=== PATIENT | female | born 1980 | race Caucasian/White ===

== ENCOUNTER 2023-07-29 12:16 | Day surgery (SDC) | payer BC, OTHER ==
[~2023-07-29] VITALS: Ht 154.9 cm; Wt 50.9 kg
[~2023-07-29 12:16] MED LIST: DELZICOL400 M1 PO; IBLOOD GLUCOSE TEST STRIP 1 EA TEST VI PRN; LACTATED RINGER'S 1,000 ML IV SCH; LIDOCAINE HCL 1% 5 ML SDV INJ ONE; LIDOCAINE HCL 4% 50 ML BTL TOP SCH; METRONIDAZOLE250 MG PO; ONDANSETRON HCL4 MG PO; PANTOPRAZOLE SO40 MG PO; PREDNISONE20 MG PO
[2023-07-29 13:39] VITALS: BP 140/96
[2023-07-29] MEDS ORDERED: MIDAZOLAM HCL 5 MG/5 ML VIAL ONE (15:08)
[2023-07-29] MEDS ORDERED: fentaNYL citrate 100 MCG/2 ML VIAL ONE (15:09)
--- NOTE | 2023-07-29 15:45 | NUR ---
07/29/23 1545 Molly Langley 1539 PT ARRIVES TO THE PACU WITH RESPIRATORY RATE EVEN AND UNLABORED. PT WAS ABLE TO LIFT HEAD OFF OF BED AND DENIES PAIN. PT LAYING IN BED WITH EYES CLOSED.
[2023-07-29 16:12] VITALS: BP 127/87
--- NOTE | 2023-07-30 11:19 | OR ---
[facility] [address] [place], [place] [address] Signed DATE OF OPERATION: 07/29/2023 SURGEON: Adarsh Trejo MD PREOPERATIVE DIAGNOSES: 1. Persistent upper abdominal pain. 2. History of significant weight loss 28 pounds. 3. bILIARY workup equivocal (ultrasound negative, CCK-HIDA test 89% ejection fraction with reproduction of symptoms). POSTOPERATIVE DIAGNOSES: Mild diffuse gastritis and small hiatal hernia with distal esophagitis. PROCEDURE: Esophagogastroduodenoscopy with biopsy. ANESTHESIA: Intravenous sedation; fentanyl 100 mcg, Versed 4 mg. INDICATIONS: This 42-year-old white woman is a patient of Krysta Blankenship of [place], [place]. The patient has had diffuse abdominal pain, diarrhea and weight loss. I was quite certain she would have inflammatory bowel disease but colonoscopy did not confirm that though the colon did have some degree of inflammation endoscopically. She underwent a gallbladder ultrasound, which showed no stones and subsequently a CCK-HIDA test, which showed an ejection fraction normal at 89% with reproduction of her symptoms. Given her current symptoms of upper abdominal pain and so forth, upper endoscopy is recommended to assess for peptic disease, which may account for her symptoms. The risk of bleeding, infection, and perforation were reviewed with her, she understands and wished to proceed. Complicating things at this point is a plan for her to likely move to [place] with her boyfriend in a job capacity on an [place]. I have recommended that if upper endoscopy was entirely normal, proceed to cholecystectomy without delay. If abnormal, treat and assess response. She understands all this and wished to proceed. FINDINGS: There is mild diffuse gastritis. There is a small hiatal hernia and minimal distal esophagitis. There was no sign of neoplasm or actual ulcer. CLOtest was negative. Electronically Signed By: ADARSH TREJO MD 07/30/23 1119 PATIENT NAME: LUCHO GARCIA OPERATIVE REPORT DATE OF : 78 REPORT #: [id number] PHYSICIAN: ADARSH TREJO MD PCP: KRYSTA BLANKENSHIP REPORT IS CONFIDENTIAL AND NOT TO BE RELEASED WITHOUT AUTHORIZATION [facility] [address] [place], [place] [address] Signed DESCRIPTION OF PROCEDURE: The patient was brought to the endoscopy suite and placed in the lateral decubitus position, given intravenous sedation to the point of slurred speech and nystagmus. Full cardiopulmonary monitoring was maintained. Preoperative lidocaine hypopharyngeal anesthesia was given. A bite block was placed. After satisfactory sedation, Olympus video upper endoscope was passed in the hypopharynx. The vocal cords appeared normal. Scope was advanced to the esophagus without problem. Throughout its length it was normal except in the distal portion there was mild inflammatory change with no Self's epithelium, stricture, neoplasm or ulceration. The scope was advanced to the stomach which was insufflated with air. There were numerous flecks of dark brown material but not actual blood. Rugal folds were normal. The mucosa of the stomach was edematous including the antrum. There did appear to be antral gastritis but no ulcer. The pylorus was normal. Scope was passed in the duodenum, which was normal. Biopsies were obtained to assess for celiac disease. Scope was withdrawn and biopsies were taken of the antrum for both JEANINE and pathologic testing. A proximal gastric biopsy was also taken. The more proximal stomach appeared the more inflamed. CLOtest biopsies were -15 minutes post procedure. Scope was straightened and withdrawn to the distal esophagus and although the mucosa had mild chronic inflammatory changes. No Self's epithelium, stricture or neoplasm. A biopsy was obtained. The scope was then withdrawn and removed. The patient was taken to the recovery room in good condition. CONCLUDING DIAGNOSES: Diffuse gastritis, small hiatal hernia and mild distal esophagitis. PLAN: Empiric treatment with Prilosec 20 mg daily and Carafate 1 g p.o. q.i.d. on empty stomach would be initiated at this point. If she does not have improvement of her symptoms from this approach and biopsies are discordant with the endoscopic findings, would consider progressing to cholecystectomy on the basis of a symptomatic CCK-HIDA test despite a normal ejection fraction. Adarsh Trejo MD /MODL /[id number] Electronically Signed By: ADARSH TREJO MD 07/30/23 1119 PATIENT NAME: LUCHO GARCIA OPERATIVE REPORT DATE OF : 78 REPORT #: [id number] PHYSICIAN: ADARSH TREJO MD PCP: KRYSTA BLANKENSHIP REPORT IS CONFIDENTIAL AND NOT TO BE RELEASED WITHOUT AUTHORIZATION [address] [address] Signed cc: MARIMAR Estes Copies: ~ Electronically Signed By: ADARSH TREJO MD 07/30/23 1119 PATIENT NAME: LUCHO GARCIA OPERATIVE REPORT DATE OF : 78 REPORT #: [id number] PHYSICIAN: ADARSH TREJO MD PCP: KRYSTA BLANKENSHIP REPORT IS CONFIDENTIAL AND NOT TO BE RELEASED WITHOUT AUTHORIZATION
--- NOTE | 2023-08-05 17:10 | PATH ---
[facility] [address] [facility] [place], [place] [address] Signed SPECIMEN(S): A DUODENAL BIOPSY SPECIMEN(S): B ANTRUM STOMACH BIOPSY SPECIMEN(S): C STOMACH BIOPSY SPECIMEN(S): D ESOPHAGEAL BIOPSY SPECIMEN SOURCE: A. DUODENAL BIOPSY B. ANTRUM STOMACH BIOPSY C. STOMACH BIOPSY D. ESOPHAGEAL BIOPSY CLINICAL HISTORY: Pre-op: Upper abdominal pain; vomiting; weight loss. Post-op: Gastritis; hiatal hernia; mild esophagitis. FINAL PATHOLOGIC DIAGNOSIS: A. Duodenal biopsy: - Benign duodenal mucosa, negative for specific diagnostic abnormality. B. Antrum stomach biopsy: - Benign gastric-type mucosa with focal slight chronic inflammation. - Negative for evidence of Helicobacter organisms on routine HE stained sections. C. Stomach biopsy: - Benign gastric-type mucosa with focal slight chronic inflammation. - Negative for evidence of Helicobacter organisms on routine HE stained sections. D. Esophageal biopsy: - Benign esophageal mucosa with scattered epithelial eosinophils (up to 10 per high power field). - Negative for glandular mucosa. - See Comment. COMMENT: The increased epithelial esophageal eosinophils is insufficient for a definitive diagnosis of eosinophilic esophagitis. Clinical correlation requested. RolandoVR:kade MICROSCOPIC EXAMINATION: Histologic sections of all submitted blocks are examined by light microscopy. These findings, together with the gross examination, support the pathologic PATIENT NAME: LUCHO GARCIA PATHOLOGY DATE OF : 78 REPORT #: [id number] PHYSICIAN: [facility] PCP: KRYSTA BLANKENSHIP REPORT IS CONFIDENTIAL AND NOT TO BE RELEASED WITHOUT AUTHORIZATION [facility] [address] [facility] [place] [address] Signed diagnosis. GROSS DESCRIPTION: A. The specimen, labeled and designated "Rice, 1" and designated on the requisition "duodenum biopsy," is received in formalin and consists of two leigh soft tissue fragments, ranging from 0.2-0.3 cm. Entirely submitted in (A1). B. The specimen, labeled and designated "Rice, 2" and designated on the requisition "antrum biopsy," is received in formalin and consists of one leigh soft tissue fragment, 0.4 cm. Entirely submitted in (B1). C. The specimen, labeled and designated "Rice, 3" and designated on the requisition "proximal stomach biopsy," is received in formalin and consists of two leigh soft tissue fragments, ranging from 0.2-0.3 cm. Entirely submitted in (C1). D. The specimen, labeled and designated "Rice, 4" and designated on the requisition "distal esophagus biopsy," is received in formalin and consists of four white-leigh soft tissue fragments, ranging from 0.2-0.6 cm. Entirely submitted in (D1). AC (under the direct supervision of a pathologist) The Gross Description was prepared using a voice recognition system. The report was reviewed for accuracy; however, sound-alike word errors, addition and/or deletions may occur. If there is any question about this report, please contact Client Services. ADDITIONAL NOTES: Immunohistochemical and/or in situ hybridization studies if performed in this case included appropriate positive controls that reacted as expected. This test was developed and its performance characteristics determined by [facility]. It has not been cleared or approved by the U.S. Food and Drug Administration. The FDA has determined that such clearance or approval is not necessary. This test is used for clinical purposes. It should not be regarded as investigational or for research. [facility] is certified under the Clinical Laboratory Improvement Amendments of 1988 (CLIA) as qualified to perform high complexity clinical laboratory testing. PERFORMING LABORATORY: Technical component was performed by [facility], [facility] [place] [address] (CLIA# [id number]). PATIENT NAME: LUCHO GARCIA PATHOLOGY DATE OF : 78 REPORT #: [id number] PHYSICIAN: CLAYTON CASANOVA PCP: KRYSTA BLANKENSHIP REPORT IS CONFIDENTIAL AND NOT TO BE RELEASED WITHOUT AUTHORIZATION [facility] [address] [place] [id number] Signed Professional interpretation was performed by [facility], [address] [place] [address] [place] [address] (CLIA#: [id number]). Diagnostician: Claudy Spencer MD Pathologist Electronically Signed 08/05/2023 Copies: ~ PATIENT NAME: LUCHO GARCIA PATHOLOGY DATE OF : 78 REPORT #: [id number] PHYSICIAN: CLAYTON CASANOVA PCP: KRYSTA BLANKENSHIP REPORT IS CONFIDENTIAL AND NOT TO BE RELEASED WITHOUT AUTHORIZATION
== END 2023-07-29 16:28 | disposition home or self-care (01) ==
LOC: OPS 12:16 → DS 12:16 → OPS 15:15
PROVIDERS: ATTEND Surgery
PROC: 0DB68ZX Excision of Stomach, Via Natural or Artificial Opening Endoscopic, Diagnostic (ICD-10-PCS; 2023-07-29)
PROC: 0DB38ZX Excision of Lower Esophagus, Via Natural or Artificial Opening Endoscopic, Diagnostic (ICD-10-PCS; 2023-07-29)
PROC: 0DB98ZX Excision of Duodenum, Via Natural or Artificial Opening Endoscopic, Diagnostic (ICD-10-PCS; principal; 2023-07-29 15:15)
DX: K29.50 Unspecified chronic gastritis without bleeding (principal); K44.9 Diaphragmatic hernia without obstruction or gangrene; K20.90 Esophagitis, unspecified without bleeding; Z87.891 Personal history of nicotine dependence
CPT/HCPCS: 84703; G0500; J2250; J3010; J7121

== ENCOUNTER 2023-09-02 10:21 | Emergency (ER) | payer BC, OTHER ==
[~2023-09-02] VITALS: Ht 154.9 cm; Wt 50.7 kg
[~2023-09-02 10:21] MED LIST changes: -IBLOOD GLUCOSE TEST STRIP 1 EA TEST VI PRN; -LACTATED RINGER'S 1,000 ML IV SCH; -LIDOCAINE HCL 1% 5 ML SDV INJ ONE; -LIDOCAINE HCL 4% 50 ML BTL TOP SCH
[2023-09-02] MEDS ORDERED: SUCRALFATE1 GM PO (13:41)
[2023-09-02] MEDS ORDERED: OMEPRAZOLE20 MG PO (13:42)
[2023-09-02 14:18] LABS: BILIRUBIN, URINE POSITIVE (negative); BLOOD/HGB, URINE NEGATIVE (Negative); KETONE, URINE TRACE (Negative); LEUK ESTERASE, URINE NEGATIVE (negative); NITRITE, URINE NEGATIVE (negative); PH, URINE 5.5 (5-7)
[2023-09-02 14:19] LABS: BASOPHILS 3.7 % (0-2); EOSINOPHILS 3.5 % (0-6); HEMATOCRIT 32.5 % (35.0-50.0); HEMOGLOBIN 11.3 g/dL (12.0-18.0); LYMPHOCYTES 37.8 % (24-44); MCHC 34.7 g/dl (30-36); MCV 112.4 fl (81-99); MONOCYTES 10.6 % (0-12); NEUTROPHILS 44.4 % (39-80); PLATELET COUNT 175 K/uL (140-440); RBC 2.89 M/ul (4.3-5.7); RDW 15.9 (10.5-15.0)
[2023-09-02 14:35] LABS: ALBUMIN 2.8 g/dL (3.4-5.0); ALBUMIN/GLOBULIN RATIO 0.85 (1.1-2.4); ANION GAP 14.4 (7-21); BILIRUBIN, TOTAL 0.8 ng/dL (0.2-1.0); BUN/CREATININE RATIO 8.62 (6.0-28.6); CALCIUM 7.9 mg/dL (8.5-10.1); CREATININE, SERUM 0.58 mg/dL (0.55-1.02); MAGNESIUM 1.5 mg/dL (1.8-2.4); POTASSIUM 3.4 mmol/L (3.5-5.1); PROTEIN, TOTAL 6.1 g/dL (6.4-8.2)
[2023-09-02 16:10] VITALS: BP 143/95
== END 2023-09-02 16:10 | disposition home or self-care (01) ==
LOC: ED 10:21
PROVIDERS: Emergency Medicine
DX: R10.11 Right upper quadrant pain (principal); R11.2 Nausea with vomiting, unspecified; Z79.899 Other long term (current) drug therapy
CPT/HCPCS: 36415; 76705; 80053; 81003; 83735; 84703; 85025; 85060